=== PATIENT | female | born 1975 | race Hispanic/Latino ===

== ENCOUNTER 2023-08-30 06:51 | Day surgery (SDC) | payer BC ==
[2023-08-28 14:49] LABS: CREATININE 0.7 mg/dL (0.5-1.0); POTASSIUM 4.6 mmol/L (3.5-5.1)
[2023-08-28 15:15] LABS: BASOPHILS # (AUTO) 0.04 K/uL (0.00-0.20); EOSINOPHILS # (AUTO) 0.35 K/uL (0.00-0.70); EOSINOPHILS % (AUTO) 8.9 % (0.0-8.0); HEMATOCRIT 39.2 % (36-48); IMMATURE GRANULOCYTE ABSOLUTE 0.01 K/uL (0-1); LYMPHOCYTES # (AUTO) 1.6 K/uL (1.0-4.8); LYMPHOCYTES % (AUTO) 40.3 % (21.0-51.0); MEAN CORPUSCULAR HEMOGLOBIN 25.8 pg (27.0-33.0); MEAN CORPUSCULAR HGB CONC 30.9 g/dL (32.0-36.0); MEAN CORPUSCULAR VOLUME 83.6 fL (79-99); MONOCYTES # (AUTO) 0.3 K/uL (0.1-1.0); MONOCYTES % (AUTO) 7.7 % (3.0-13.0); NEUTROPHILS # (AUTO) 1.6 K/uL (1.8-7.7); NEUTROPHILS % (AUTO) 41.8 % (40.0-77.0); PLATELET COUNT (AUTO) 242 K/uL (130-400); RED BLOOD CELL COUNT(AUTO) 4.69 MIL/uL (4.00-5.50); RED CELL DISTRIBUTION WIDTH 23.5 % (11.0-15.5); WHITE BLOOD COUNT (AUTO) 3.9 K/uL (4.8-10.8)
[2023-08-28 15:21] VITALS: BP 102/67; PULSE 60; RESP 17
[~2023-08-30] VITALS: Ht 157.5 cm; Wt 60.5 kg
[2023-08-30] VITALS (17 sets, daily range): BP systolic 102–152; BP diastolic 64–73; PULSE 51–66; RESP 12–18
[~2023-08-30 06:51] MED LIST: CHOL500050 PO; DICY10CA2 PO
[2023-08-30] MEDS ORDERED: ACETAMINOPHEN 1,000 MG/100 ML VIAL IV ONE (07:04)
[2023-08-30] MEDS ORDERED: FAMOTIDINE 20MG VIAL IV ONE (07:05)
[2023-08-30] MEDS ORDERED: ROPIVACAINE 0.5% 5MG/ML 30ML ONE (07:08)
[2023-08-30] MEDS ORDERED: ROCURONIUM BROMIDE 10MG/1ML 5ML VL ONE ×2 (07:16→09:05)
[2023-08-30] MEDS ORDERED: PROPOFOL 10 MG/ML 20ML VIAL IV ONE (07:16)
[2023-08-30] MEDS ORDERED: LIDOCAINE PF 100MG/5ML (2%) SYRINGE 5ML ONE (07:16)
[2023-08-30] MEDS ORDERED: FENTANYL CITRATE PF 50 MCG/1 ML 2ML VIAL ONE (07:17)
[2023-08-30] MEDS ORDERED: BUPIVACAINE/PF 0.25% 30ML VIAL IJ ONE (07:18)
[2023-08-30] MEDS: LACTATED RINGERS 1000ML 1,000 ML IV ONE (07:28)
[2023-08-30] MEDS: CEFAZOLIN SODIUM 2 GM VIAL ONE (07:28)
[2023-08-30] MEDS: METRONIDAZOLE 500MG/100ML BAG 0 ML ONE (07:29)
[2023-08-30] MEDS ORDERED: IOHEXOL-350 50ML VIAL IV ONE (07:48)
[2023-08-30] MEDS ORDERED: ONDANSETRON 4MG INJ ONE (08:09)
[2023-08-30] MEDS ORDERED: DEXAMETHASONE SOD PHOSPHATE 10MG/ML 1ML VIAL ONE (08:09)
[2023-08-30] MEDS ORDERED: GLYCOPYRROLATE 0.2 MG/ML 5 ML VIAL ONE (08:33)
[2023-08-30] MEDS ORDERED: NEOSTIGMINE METHYLSULFATE 1MG/ML IV ONE (08:33)
[2023-08-30] MEDS: MEPERIDINE-PF 25 MG/ML SYG ONE (10:36)
[2023-08-30] MEDS: ONDANSETRON 4MG INJ ONE (10:36)
[2023-08-30] MEDS: KETOROLAC 30MG VIAL (30MG/ML) ONE (10:37)
== END 2023-08-30 11:50 | disposition home or self-care (01) ==
LOC: DAH 06:51
PROVIDERS: ATTEND Surgery
DX: K82.9 Disease of gallbladder, unspecified (principal); K81.1 Chronic cholecystitis; J45.909 Unspecified asthma, uncomplicated; E11.9 Type 2 diabetes mellitus without complications; D50.9 Iron deficiency anemia, unspecified; E55.9 Vitamin D deficiency, unspecified; E78.2 Mixed hyperlipidemia; Z98.84 Bariatric surgery status; Z79.899 Other long term (current) drug therapy
CPT/HCPCS: 80048; 85025; 86850; 86900; 86901; 36415; 93005; 64488; 47563; 88304; 74300; A6260; A4600; A4663; J7030; A4215 ×2; C1758; J7120; J3490 ×4; J3010; J1100; J2001; J2704; J2405 ×2; J1885; J2710; J2175; J2795; Q9967; J0690; C1769 ×3; G0168; A4649 ×2; A4223; A4222; A4221; J0665